=== PATIENT | female | born 1965 | race Caucasian/White ===

== ENCOUNTER → 2021-07-25 | Outpatient (CLI) | payer OTHER ==
[~2021-07-25] MED LIST: ADVAIR HFA 115-12 G1 INH; ALBUTEROL0.63 MG/3 INH; ATORVASTATIN CA10 MG PO; DIVALPROEX SOD500 M1 PO; FUROSEMIDE 20 M20 M1 PO; GABAPENTIN600 M1 PO; GEMTESA75 MG PO; INCRUSE ELLI62.5 MCG INH; LEXAPRO 10 MG T10 M2 PO; MECLIZINE HCL25 MG PO; METFORMIN HCL1000 MG PO; NITROGLYCERIN0.4 MG SUBLING; NORCO5 PO; NORVASC5 MG PO; POTASSIUM CHLO10 ME1 PO; PRINIVIL40 MG PO; PROPRANOLOL 20M20 M1 PO; TRAZODONE HCL100 MG PO
--- NOTE | 2021-07-27 15:12 | O ---
[facility] [place] [address] OPERATIVE REPORT Name: KIMTAMMY Room #: EDGAR JAKE Prince#: [id number] Admission: 07/25/21 Attend Phys: Rica Centeno DO Discharge: Date of : 63 Report #: [id number] THIS REPORT FOR: cc: Laura Allison,Laura Purvis,Laura Garvey DO ~ DATE OF SERVICE: 07/27/2021 PREOPERATIVE DIAGNOSES: 1. History of right breast cancer. 2. BRCA positive gene mutation. POSTOPERATIVE DIAGNOSES: 1. History of right breast cancer. 2. BRCA positive gene mutation. PROCEDURE: Prophylactic left simple mastectomy. SURGEON: Laura Allison DO ANESTHESIA: General endotracheal. SPECIMENS: Left breast (stitch funez axillary tail). DRAINS: A 19-Croatian JAMEL drain placed to bulb suction and brought out through the left inframammary fold. ESTIMATED BLOOD LOSS: 50 mL. COMPLICATIONS: None. INDICATIONS FOR PROCEDURE: The patient is a 56-year-old female who was referred to my office for evaluation of prophylactic left simple mastectomy. The patient has a history of right breast cancer and has been found to have the BRCA gene mutation. Due to the patient's increased comorbidities and increased risk of recurrent breast cancer in the contralateral breast, discussed with the patient recommendation for prophylactic left simple mastectomy. The patient was explained the procedure including risks, benefits and alternatives. All questions were answered to the patient's satisfaction. Informed consent was obtained. DESCRIPTION OF PROCEDURE: After the patient was brought back to the operating room and placed in supine position, general anesthesia was induced. SCDs were placed on bilateral lower extremities and 3 grams of Ancef were prophylactically administered. General anesthesia was induced and the patient was intubated. The patient's previous mastectomy incision scar was marked with a marking pen as [address] [address] OPERATIVE REPORT Name: TAMMY KIM Room #: REG JAKE Prince#: [id number] Admission: 07/25/21 Attend Phys: Rica Centeno DO Discharge: Date of : 63 Report #: [id number] well as the patient's previous scar from her left Bdus-G-Btqxcopx. The patient was noted to have keyhole scars on her left breast in the inframammary fold as well as just inferior to the nipple and around the areolar complex. At this time, the left chest was prepped and draped in the usual sterile fashion. After a timeout was performed, an elliptical incision was created with a #10 blade around the patient's nipple areolar complex. Dissection was carried down through the subcutaneous tissues using Bovie cautery. Next, the superior skin flap was retracted with skin hooks and with manual retraction of the breast tissue, the breast was removed using Bovie cautery from the superior skin flap. Dissection was carried medially to the lateral border of the sternum, superiorly to the level of the clavicle. Two Prolene sutures were identified near the site of the patient's previous Wwqq-Z-Siscgygo site. There was also noted to be scarring in this location as well. Once this area was clean and hemostatic, dissection then was initiated in a similar fashion along the inferior flap. Similar dissection was performed to the level of the inferior mammary fold. The breast tissue was then dissected inferiorly to the level of the abdominal wall as well as laterally to the lateral pectoralis muscle. The patient was noted to have a large lateral axillary fat pad as well as subcutaneous fat pad. At this time, the breast tissue was then removed from the pectoralis muscle, leaving the fascia in place. This was performed in a medial to lateral fashion, achieving hemostasis along the way. Once lateral, I ensured that the axillary tail was removed as well. This was done to the lateral margin of the pectoralis muscle and I was able to identify the axillary fat pad, which was left intact. Once the breast was removed in its entirety near the latissimus dorsi, the breast was then marked with a single stitch of 2-0 nylon suture marking the axillary tail. There was secondary matthias of tissue, which was more subcutaneous fat along the inferior margin that was anatomically placed back into position and secured with a 3-0 Vicryl stitch to the specimen. This was then passed off the field and sent to pathology for permanent. Next, the skin level was palpated, there was noted to be nice smooth skin along the medial and superior margin of the skin flap, the inferior flap did have an abrupt cut off and shelving edge along the abdominal fat planes. Therefore, I did remove additional subcutaneous fat to allow for more gentle taper of the mastectomy site. Once this was completed, I also removed additional lateral subcutaneous fat from the midaxillary line. At this time, the area was then copiously irrigated. The surgical field was noted to have excellent hemostasis. The skin was then reapproximated in a layered fashion with 3-0 Vicryl and the skin was closed with 4-0 Monocryl. Prior to skin closure, a 19-Croatian fully fluted JAMEL drain was placed in the skin fold and brought out through the left lateral inframammary fold region and secured to the skin using a 2-0 nylon stitch. Next, the skin was then cleaned. Dermabond was applied for sterile dressing. A drain stitch was then placed around the drain site, 4 x 4 fluffs and ABD dressing was then applied and a surgical bra was placed on the patient prior to waking from anesthesia, extubating and taking to the recovery room in stable condition. The patient tolerated the procedure well without any complications. She will be monitored for 23-hour observation to [address] [address] OPERATIVE REPORT Name: TAMMY KIM Room #: REG JAKE Prince#: [id number] Admission: 07/25/21 Attend Phys: Rica Centeno DO Discharge: Date of : 63 Report #: [id number] ensure normal output from her JAMEL drain as well as monitor her COPD and sleep apnea. <ELECTRONICALLY SIGNED> By: Laura Allison DO 07/27/21 1512 [id number] Laura Allison DO /nt
== END ==
LOC: LAB 09:29
PROVIDERS: ATTEND Student in an Organized Health Care Education/Training Program
DX: Z01.812 Encounter for preprocedural laboratory examination (principal); Z20.822 Contact with and (suspected) exposure to COVID-19

== ENCOUNTER 2021-07-27 06:05 | Observation (INO) | payer OTHER ==
[~2021-07-27] VITALS: Ht 177.8 cm; Wt 151.2 kg
--- NOTE | ~2021-07-27 | O ---
[facility] [place] [address] OPERATIVE REPORT Name: TAMMY KIM Room #: 433-I [facility] Mylene Prince#: [id number] Admission: 07/27/21 Attend Phys: Laura Allison DO Discharge: 07/28/21 Date of : 63 Report #: [id number] THIS REPORT FOR: cc: Laura Allison,Laura Purvis,Laura Garvey DO ~ DATE OF SERVICE: 07/27/2021 PREOPERATIVE DIAGNOSES: 1. History of right breast cancer. 2. BRCA positive gene mutation. POSTOPERATIVE DIAGNOSES: 1. History of right breast cancer. 2. BRCA positive gene mutation. PROCEDURE: Prophylactic left simple mastectomy. SURGEON: Laura Allison DO ANESTHESIA: General endotracheal. SPECIMENS: Left breast (stitch funez axillary tail). DRAINS: A 19-Faroese JAMEL drain placed to bulb suction and brought out through the left inframammary fold. ESTIMATED BLOOD LOSS: 50 mL. COMPLICATIONS: None. INDICATIONS FOR PROCEDURE: The patient is a 56-year-old female who was referred to my office for evaluation of prophylactic left simple mastectomy. The patient has a history of right breast cancer and has been found to have the BRCA gene mutation. Due to the patient's increased comorbidities and increased risk of recurrent breast cancer in the contralateral breast, discussed with the patient recommendation for prophylactic left simple mastectomy. The patient was explained the procedure including risks, benefits and alternatives. All questions were answered to the patient's satisfaction. Informed consent was obtained. DESCRIPTION OF PROCEDURE: After the patient was brought back to the operating room and placed in supine position, general anesthesia was induced. SCDs were placed on bilateral lower extremities and 3 grams of Ancef were prophylactically administered. General anesthesia was induced and the patient was intubated. The patient's previous mastectomy incision scar was marked with a marking pen as [address] [address] OPERATIVE REPORT Name: TAMMY KIM Room #: 433-I DIS Mylene Prince#: [id number] Admission: 07/27/21 Attend Phys: Laura Allison DO Discharge: 07/28/21 Date of : 63 Report #: [id number] well as the patient's previous scar from her left Rtyr-I-Plwdwypm. The patient was noted to have keyhole scars on her left breast in the inframammary fold as well as just inferior to the nipple and around the areolar complex. At this time, the left chest was prepped and draped in the usual sterile fashion. After a timeout was performed, an elliptical incision was created with a #10 blade around the patient's nipple areolar complex. Dissection was carried down through the subcutaneous tissues using Bovie cautery. Next, the superior skin flap was retracted with skin hooks and with manual retraction of the breast tissue, the breast was removed using Bovie cautery from the superior skin flap. Dissection was carried medially to the lateral border of the sternum, superiorly to the level of the clavicle. Two Prolene sutures were identified near the site of the patient's previous Hwqh-X-Gowivzwx site. There was also noted to be scarring in this location as well. Once this area was clean and hemostatic, dissection then was initiated in a similar fashion along the inferior flap. Similar dissection was performed to the level of the inferior mammary fold. The breast tissue was then dissected inferiorly to the level of the abdominal wall as well as laterally to the lateral pectoralis muscle. The patient was noted to have a large lateral axillary fat pad as well as subcutaneous fat pad. At this time, the breast tissue was then removed from the pectoralis muscle, leaving the fascia in place. This was performed in a medial to lateral fashion, achieving hemostasis along the way. Once lateral, I ensured that the axillary tail was removed as well. This was done to the lateral margin of the pectoralis muscle and I was able to identify the axillary fat pad, which was left intact. Once the breast was removed in its entirety near the latissimus dorsi, the breast was then marked with a single stitch of 2-0 nylon suture marking the axillary tail. There was secondary matthias of tissue, which was more subcutaneous fat along the inferior margin that was anatomically placed back into position and secured with a 3-0 Vicryl stitch to the specimen. This was then passed off the field and sent to pathology for permanent. Next, the skin level was palpated, there was noted to be nice smooth skin along the medial and superior margin of the skin flap, the inferior flap did have an abrupt cut off and shelving edge along the abdominal fat planes. Therefore, I did remove additional subcutaneous fat to allow for more gentle taper of the mastectomy site. Once this was completed, I also removed additional lateral subcutaneous fat from the midaxillary line. At this time, the area was then copiously irrigated. The surgical field was noted to have excellent hemostasis. The skin was then reapproximated in a layered fashion with 3-0 Vicryl and the skin was closed with 4-0 Monocryl. Prior to skin closure, a 19-Faroese fully fluted JAMEL drain was placed in the skin fold and brought out through the left lateral inframammary fold region and secured to the skin using a 2-0 nylon stitch. Next, the skin was then cleaned. Dermabond was applied for sterile dressing. A drain stitch was then placed around the drain site, 4 x 4 fluffs and ABD dressing was then applied and a surgical bra was placed on the patient prior to waking from anesthesia, extubating and taking to the recovery room in stable condition. The patient tolerated the procedure well without any complications. She will be monitored for 23-hour observation to [address] [address] OPERATIVE REPORT Name: TAMMY KIM Room #: 433-I DIS Mylene Prince#: [id number] Admission: 07/27/21 Attend Phys: Laura Allison DO Discharge: 07/28/21 Date of : 63 Report #: [id number] ensure normal output from her JAMEL drain as well as monitor her COPD and sleep apnea. By: 0944 [id number] Laura Allison DO /nt
--- NOTE | ~2021-07-27 | O ---
[facility] [place] [address] OPERATIVE REPORT Name: TAMMY KIM Room #: 433-I [facility] Mylene Prince#: [id number] Admission: 07/27/21 Attend Phys: Laura Allison DO Discharge: 07/28/21 Date of : 63 Report #: [id number] THIS REPORT FOR: cc: Laura Allison,Laura Purvis,Laura Garvey DO ~ DATE OF SERVICE: 07/27/2021 PREOPERATIVE DIAGNOSES: 1. History of right breast cancer. 2. BRCA positive gene mutation. POSTOPERATIVE DIAGNOSES: 1. History of right breast cancer. 2. BRCA positive gene mutation. PROCEDURE: Prophylactic left simple mastectomy. SURGEON: Laura Allison DO ANESTHESIA: General endotracheal. SPECIMENS: Left breast (stitch funez axillary tail). DRAINS: A 19-[place] Citizen JAMEL drain placed to bulb suction and brought out through the left inframammary fold. ESTIMATED BLOOD LOSS: 50 mL. COMPLICATIONS: None. INDICATIONS FOR PROCEDURE: The patient is a 56-year-old female who was referred to my office for evaluation of prophylactic left simple mastectomy. The patient has a history of right breast cancer and has been found to have the BRCA gene mutation. Due to the patient's increased comorbidities and increased risk of recurrent breast cancer in the contralateral breast, discussed with the patient recommendation for prophylactic left simple mastectomy. The patient was explained the procedure including risks, benefits and alternatives. All questions were answered to the patient's satisfaction. Informed consent was obtained. DESCRIPTION OF PROCEDURE: After the patient was brought back to the operating room and placed in supine position, general anesthesia was induced. SCDs were placed on bilateral lower extremities and 3 grams of Ancef were prophylactically administered. General anesthesia was induced and the patient was intubated. The patient's previous mastectomy incision scar was marked with a marking pen as [address] [address] OPERATIVE REPORT Name: TAMMY KIM Room #: 433-I DIS Mylene Prince#: [id number] Admission: 07/27/21 Attend Phys: Laura Allison DO Discharge: 07/28/21 Date of : 63 Report #: [id number] well as the patient's previous scar from her left Eknf-Y-Wkiizdve. The patient was noted to have keyhole scars on her left breast in the inframammary fold as well as just inferior to the nipple and around the areolar complex. At this time, the left chest was prepped and draped in the usual sterile fashion. After a timeout was performed, an elliptical incision was created with a #10 blade around the patient's nipple areolar complex. Dissection was carried down through the subcutaneous tissues using Bovie cautery. Next, the superior skin flap was retracted with skin hooks and with manual retraction of the breast tissue, the breast was removed using Bovie cautery from the superior skin flap. Dissection was carried medially to the lateral border of the sternum, superiorly to the level of the clavicle. Two Prolene sutures were identified near the site of the patient's previous Xyth-X-Xpgplnji site. There was also noted to be scarring in this location as well. Once this area was clean and hemostatic, dissection then was initiated in a similar fashion along the inferior flap. Similar dissection was performed to the level of the inferior mammary fold. The breast tissue was then dissected inferiorly to the level of the abdominal wall as well as laterally to the lateral pectoralis muscle. The patient was noted to have a large lateral axillary fat pad as well as subcutaneous fat pad. At this time, the breast tissue was then removed from the pectoralis muscle, leaving the fascia in place. This was performed in a medial to lateral fashion, achieving hemostasis along the way. Once lateral, I ensured that the axillary tail was removed as well. This was done to the lateral margin of the pectoralis muscle and I was able to identify the axillary fat pad, which was left intact. Once the breast was removed in its entirety near the latissimus dorsi, the breast was then marked with a single stitch of 2-0 nylon suture marking the axillary tail. There was secondary matthias of tissue, which was more subcutaneous fat along the inferior margin that was anatomically placed back into position and secured with a 3-0 Vicryl stitch to the specimen. This was then passed off the field and sent to pathology for permanent. Next, the skin level was palpated, there was noted to be nice smooth skin along the medial and superior margin of the skin flap, the inferior flap did have an abrupt cut off and shelving edge along the abdominal fat planes. Therefore, I did remove additional subcutaneous fat to allow for more gentle taper of the mastectomy site. Once this was completed, I also removed additional lateral subcutaneous fat from the midaxillary line. At this time, the area was then copiously irrigated. The surgical field was noted to have excellent hemostasis. The skin was then reapproximated in a layered fashion with 3-0 Vicryl and the skin was closed with 4-0 Monocryl. Prior to skin closure, a 19-[place] Citizen fully fluted JAMEL drain was placed in the skin fold and brought out through the left lateral inframammary fold region and secured to the skin using a 2-0 nylon stitch. Next, the skin was then cleaned. Dermabond was applied for sterile dressing. A drain stitch was then placed around the drain site, 4 x 4 fluffs and ABD dressing was then applied and a surgical bra was placed on the patient prior to waking from anesthesia, extubating and taking to the recovery room in stable condition. The patient tolerated the procedure well without any complications. She will be monitored for 23-hour observation to [address] [address] OPERATIVE REPORT Name: TAMMY KIM Room #: 433-I DIS Mylene Prince#: [id number] Admission: 07/27/21 Attend Phys: Laura Allison DO Discharge: 07/28/21 Date of : 63 Report #: [id number] ensure normal output from her JAMEL drain as well as monitor her COPD and sleep apnea. By: 0944 1052 Laura Allison DO /nt
[~2021-07-27 06:05] MED LIST changes: -NORCO5 PO
[2021-07-27 07:07] VITALS: BP 116/68
[2021-07-27] MEDS ORDERED: NORCO5 PO (11:16)
--- NOTE | 2021-07-27 15:27 | NUR ---
ASSUMED CARE OF PT AT 1400 THIS AFTERNOON FROM PACU. PT HAS BEEN WAITING IN PACU SINCE 1030. PT IS A/OX4 WITH DRESSING C/D/I ON LT CHEST AFTER MASTECTOMY. SYSTEMS ASSESSMENTS AND PLAN OF CARE COMPLETED BY RN, THAO. PT IS UP INDEP AND NO NEED FOR FALL PRECAUTIONS. PT IS IN FOR OBSERVATION AND MOST LIKELY DISCHARGING TOMORROW MORNING. MEDS AND TX GIVEN NEEDED AND SCHEDULED. WILL MONITOR AND NOTE ANY CHANGES.
[2021-07-27 15:55] VITALS: BP 145/76
[2021-07-27 19:21] VITALS: BP 155/89
--- NOTE | 2021-07-28 05:29 | NUR ---
RECEIVED CARE OF THIS PATIENT AT 1900. PATIENT ALERT AND ORIENTED X4. UP AD CLAUDIA. C/O PAIN BUT REFUSES MED. HAS JAMEL DRAIN. O2 AT 3L/NC. SLEPT MOST OF NIGHT.
[2021-07-28 08:45] VITALS: BP 117/57
[2021-07-28 10:53] VITALS: BP 117/57
[2021-07-28 12:03] VITALS: BP 117/57
--- NOTE | 2021-07-28 13:58 | NUR ---
ORDERS RECEIVED. CHART REVIEWED. INSTRUCTED IN HOME EXERCISE PROGRAM TO START AFTER DRAINS ARE REMOVED. REVIEWED PRECAUTIONS FOR POST OP AND LYMPHEDEMA. PT REMEMBERS HER PRECAUTIONS FROM PRIOR SURGERY. Pt TO CALL OUT PT REHAB IF SHE HAS ANY FURTHER QUESTIONS. THANK YOU FOR THE REFERRAL
--- NOTE | 2021-07-28 14:47 | NUR ---
ASSUMED CARE OF PT AT 0700. PT WAS RESTING IN BED. NO COMPLAINTS OTHER THAN PAIN. STATED HER NECK WAS HURTING. GIVEN HYDROCODONE. GAVE PT DISCHARGE PAPERWORK, HELPED AMBULATE TO BATHROOM. ALL VITAL SIGNS WNL
--- NOTE | 2021-08-09 10:07 | PATH ---
[facility] [place] [address] PATHOLOGY RPT PROCEDURE Name: TRACY KIM Room #: 433-I [facility] Mylene M.R.#: [id number] Admission: 07/27/21 Date of : 63 Discharge: 07/28/21 Report #: [id number] Path Case #: [id number] [facility] Accession Number: [id number] . 01 Material submitted: . breast - LEFT BREAST STITCH AT AXILLARY TAIL. Modifiers: left, axillary tail . 01 Clinical history: . DS 07/27 SIMPLE MASTECTOMY UNILATERAL HISTORY OF CANCER RIGHT BREAST MASTECTOMY, MODIFIED RADICAL UNILAT... COLLECTED: FORMALIN: 0939 . 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 - Fibrocystic changes with usual ductal hyperplasia with and without atypia. . (LAMIN/db/mml; 07/28/2021) . . . CASE SUMMARY: (DCIS OF THE BREAST: Resection) Standard(s): AJCC-UICC 8 . SPECIMEN . Procedure ___ Total mastectomy (including nipple-sparing and skin-sparing mastectomy) . Specimen Laterality ___ Left . TUMOR . +Tumor Site ___ Upper inner quadrant . Histologic Type ___ Ductal carcinoma in situ . Size (Extent) of DCIS [facility] [address] [place] [address] PATHOLOGY RPT PROCEDURE Name: TRACY KIM Room #: 433-I [facility] Mylene Rosa.#: [id number] Admission: 07/27/21 Date of : 63 Discharge: 07/28/21 Report #: [id number] Path Case #: [id number] ___ Estimated size (extent) of DCIS is at least in Millimeters: About 5 mm . +Additional Dimension in Millimeters (mm): About 3 x 4 mm +Number of Blocks with DCIS: 1 +Number of Blocks Examined: 28 . +Architectural Patterns ___ Cribriform . Nuclear Grade ___ Grade II (intermediate) . Necrosis ___ Not identified . MARGINS Margin Status: Uninvolved by DCIS +Distance from the closest margin: Not close to any margins . REGIONAL LYMPH NODES . Regional Lymph Node Status ___ No lymph nodes submitted or found . PATHOLOGIC STAGE CLASSIFICATION (pTNM, AJCC 8th Edition) . pT Category ___ pTis (DCIS): Ductal carcinoma in situ . Regional Lymph Nodes . pN Category ___ pN cannot be assessed as not removed . DISTANT METASTASIS: Not applicable . MICROCALCIFICATIONS: present . ADDITIONAL FINDINGS +Additional Pathological Findings: Focus of atypical ductal hyperplasia measuring 1 to 2 mm . ANCILLARY STUDIES FOR LEFT BREAST: Pending on block A13 ER and CO . . . CLINICAL HISTORY: [facility] [address] [place] [address] PATHOLOGY RPT PROCEDURE Name: TRACY KIM Room #: 433-I [facility] Mylene Prince#: [id number] Admission: 07/27/21 Date of : 63 Discharge: 07/28/21 Report #: [id number] Path Case #: [id number] . PRIOR HISTORY OF BREAST CANCER: On the right side . (LAMIN:wilver; 07/29/2021) LBQ 07/29/2021 1414 Local . 01 Comment: Immunoperoxidase stains p63 and smooth muscle myosin on block A11 are positive. Immunoperoxidase stain CK5/6 on block A13 is negative consistent with ductal carcinoma in situ. Immunoperoxidase stain CK5/6 on blocks A15 is positive and in block A16 is focally negative consistent with atypical ductal hyperplasia. . This case is also reviewed by Dr. Jayna Kelly on 07/29/2021. She agreed with the above diagnosis. This case was also discussed with Dr.Chelsea Allison on 07/29/2021 at 1:00 pm. (LAMIN/chas/mmclaudette; 07/28/2021) . 01 Addendum: . Special studies report received from [facility], [address] [place] [address], [address], [place], [address], on case [id number], labeled with their number [id number], dated 08/05/2021. . Breast Predictive/Prognostic Marker Analysis . . Specimen Site: Left Breast, Mastectomy, Breast Cancer Specimen ID #: [id number] . ER (Estrogen Receptor) Positive Percent: 95.00% Analysis: Manual Staining Intensity: Moderate to Strong Internal Control: Present and Positive . CO (Progesterone Receptor) Positive Percent: 95.00% Analysis: Manual Staining Intensity: Moderate to Strong Internal Control: Present and Positive . Time to Fixation (Cold Ischemic Time): 10 Minutes Duration of Fixation: 11 Hours Type of Fixative: 10% Neutral Buffered Formalin [address] [address] PATHOLOGY RPT PROCEDURE Name: TRACY KIM Room #: 433-I [facility] Mylene Prince#: [id number] Admission: 07/27/21 Date of : 63 Discharge: 07/28/21 Report #: [id number] Path Case #: [id number] . at [email or web address], [employer]. Erica Scott D.O. Surgical Pathologist . . Methodology: A rabbit monoclonal antibody (clone SP1) that recognized the Estrogen Receptor is used to perform immunohistochemistry on routinely fixed (formalin) paraffin embedded tissue on the [place] [employer]. The specimen is processed using a secondary antibody-HRP conjugate detection system. The percentage of stained tumor nuclei is determined either manually or by image analysis. This test is intended for in vitro diagnostic use. This test is used for clinical purposes. . A rabbit monoclonal antibody (clone 1E2) that recognized the Progesterone Receptor is used to perform immunohistochemistry on routinely fixed (formalin) paraffin embedded tissue on the [place] [employer]. The specimen is processed using a secondary antibody-HRP conjugate detection system. The percentage of stained tumor nuclei is determined either manually or by image analysis. This test is intended for in vitro diagnostic use. This test is used for clinical purposes. . Intended Use: This antibody is intended for in vitro diagnostic (IVD) use. Estrogen Receptor (ER) (SP1) is a rabbit monoclonal antibody (IgG) that is intended for the qualitative detection of estrogen receptor (ER) antigen in sections of formalin-fixed, paraffin-embedded tissue. ER is a rabbit monoclonal antibody that recognizes human estrogen receptor alpha. . This antibody is intended for in vitro diagnostic (IVD) use. Progesterone Receptor (CO) (1E2) is a rabbit monoclonal antibody (IgG) that is intended for the qualitative detection of progesterone receptor (CO) antigen in sections of formalin fixed, paraffin embedded tissue. CO is a rabbit monoclonal antibody that recognizes the A and B forms of the human progesterone receptor. . Disclaimer(s): This assay has not been validated on decalcified tissues. Results should be interpreted with caution if this specimen was decalcified given the likelihood of false negativity on decalcified specimens. . Any image(s) that accompany this report is/are a packaging sales representative image(s) only and should not be used to render a diagnosis. . This interpretation is contingent on the specimen and the clinical information received. [facility] [address] [place] [address] PATHOLOGY RPT PROCEDURE Name: TRACY KIM Room #: 433-I [facility] Prince#: [id number] Admission: 07/27/21 Date of : 63 Discharge: 07/28/21 Report #: [id number] Path Case #: [id number] . For any special tests/stains performed, known positive cells or tissues are tested with each marker and examined to ensure positivity. Positive and negative internal controls, if present, react appropriately. . This analysis is an adjunct to the evaluation of the referring physician and does not represent a final diagnosis. . The immunohistochemistry tests performed at [facility]. were validated on tissue fixed in 10% neutral buffered formalin. The performance characteristics of the tests performed on tissue processed in other fixatives is not known. . ER/CO ASCO/CAP guidelines require fixation in neutral buffered formalin for a minimum of 6 and a maximum of 72 hours. Fixation times less than 6 hours may not adequately preserve cell proteins. Fixation times longer than 72 hours may cause excess cross-linking of proteins reducing the antigen available for staining. Either scenario can cause reduced staining; hence false negative results are possible and should be considered for these situations. The time from biopsy/excision to fixation in formalin (cold ischemic time) must be less than 1 hour. Time to fixation (cold ischemic time) greater than 1 hour should be interpreted with caution. REF: Enrrique Thao, et al. [place] Society of Clinical Oncology/College of [place] Pathologists Guideline Recommendations for Immunohistochemical Testing of Estrogen and Progesterone Receptors in Breast Cancer. J Clin Oncol. 2009December 07; 28(16): 8229-8145. . ER/PgR testing at [facility]. is performed in compliance with the ASCO/CAP Clinical Practice Guidelines. If the result for ER is less than 1% it is reported as Negative; if the ER result is 1-10% it is reported as Low Positive; if the ER result is greater than 10% it is reported as Positive. If the result for PgR is less than 1% it is reported as Negative; if the PgR result is equal to or greater than 1%, it is reported as Positive. . REFERENCE: Leatha KH, Master WESTON, Kunal M,et al. Estrogen and progesterone receptor testing in breast cancer. ASCO/CAP guideline update. Arch Pathol Lab Med. 2020;144:545-563. . Performing Labs: This Test was performed at [facility]. at [address] [address], [place], [address]. . [facility] is a business unit of [facility]. a wholly-owned subsidiary of [employer]. . A complete copy of the report is on file. [place] [id number] PATHOLOGY RPT PROCEDURE Name: TRACY KIM Room #: 433-I [facility] Mylene M.R.#: [id number] Admission: 07/27/21 Date of : 63 Discharge: 07/28/21 Report #: [id number] Path Case #: [id number] . Professional and Technical services performed by [employer]. at [facility], [place] [address]. . (SHA:devan 08/05/2021) KORTNEY/08/05/2021 Addendum Electronically Signed by Jason Nielsen MD. Pathologist . 01 Electronically signed: . Jason Nielsen MD, Pathologist NPI- [id number] . 01 Gross description: . The specimen is received in formalin, labeled "Tracy Kim, Left breast-stitch at axillary tail" and the specimen consists of a 901 g mastectomy (18.5 x 15.0 x 6.0 cm) that is partially surfaced with a gallego skin ellipse (14.3 x 6.1 cm) that displays an areola (5.5 cm in diameter) with a central everted nipple (1.4 cm in diameter). The areolar rim displays a white-gallego, circumferential discoloration (5.7 x 0.5 cm). The specimen has been previously oriented with a stitch designating the axillary tail. The markedly shaggy surgical margins are inked as follows: superficial superior margin-blue, superficial inferior margin-green ink, and the deep margin is inked black. The deep margin is markedly disrupted and as a result the inked surfaces may be distorted. Sectioning reveals, within the upper outer quadrant, at approximately the 11 o'clock position, a yellow-gallego slightly radiating rubbery and focally gritty mass (mass #1, 0.4 x 0.4 x 0.3 cm) that comes to within 3.6 cm from the superficial superior margin, 8.0 cm from the superficial inferior margin and approximately 5.5 cm from the deep margin. Located approximately 8.0 cm from mass #1, within the lower inner quadrant, at approximately 4:00-5:00 position, is a second pink, firm mass (mass #2, 0.4 x 0.3 x 0.3 cm) that comes to within 1.2 cm from the nearest superficial inferior margin, approximately 2.7 cm from the deep margin, and 6.7 cm from the nearest superficial superior margin. No biopsy cavity or clip is identified. The remaining cut surfaces display at most 5% fibrocystic tissue. Family Medicine Physician Assistant sections are submitted as follows: A1: Perpendicularly sectioned nipple, submitted on edge, entirely submitted A2: Tissue underlying nipple, submitted en face, entirely submitted and areolar circumferential discoloration, represented A3: Superficial superior margin nearest mass #1, represented A4: Superficial inferior margin nearest mass #1, represented A5: Deep margin nearest mass #1, represented A6-A7: Mass 1, entirely submitted A8: Deep margin nearest mass #2, represented A9: Superficial superior margin nearest mass #2, represented A10-A12: Mass #2, entirely submitted and to show proximity to superficial inferior margin represented in A10-A11 [facility] [address] [place] [address] PATHOLOGY RPT PROCEDURE Name: TRACY KIM Room #: 433-I [facility] M.R.#: [id number] Admission: 07/27/21 Date of : 63 Discharge: 07/28/21 Report #: [id number] Path Case #: [id number] A13: Upper inner quadrant, represented A 14: Lower inner quadrant, represented A15: Lower outer quadrant, represented A16: Upper outer quadrant, represented The cold ischemic time 10 minutes. The total time in formalin is 11 hours. Photographs are taken. ([place]; 07/27/2021) . The approximate distance of the smaller section of fat in A13 to the nearest margins is as follows: 1.7 cm from superficial superior 1.5 cm from superficial inferior 3.1 cm from deep margin . A17-A19: Additional sections from upper inner quadrant, represented A20-A21: Additional sections from upper outer quadrant, represented A22-A24: Additional sections from lower outer quadrant, represented A25-A28: Additional sections surrounding mass #2, represented The total time in formalin for the tissue in A17-A28 is 33 hours. ([place]; 07/28/2021) DKA/DKA 07/28/2021 1426 Local . 01 Pathologist provided ICD-10: D05.12, N62 . 01 CPT . 812354, [id number], [id number] Performed at: 01 [facility] [place] [address], [place], [place] [id number] MD Jason Nielsen MD Phone: [phone]
== END 2021-07-28 14:49 | disposition home or self-care (01) ==
LOC: 4S 06:05 → OR 06:05 → 4S 14:11 → OR 14:12 → 4S 14:12 → OR 14:52 → 4S 07-28 14:49
PROVIDERS: ADMIT Surgery; ATTEND Surgery
DX: C50.911 Malignant neoplasm of unspecified site of right female breast (principal); C50.912 Malignant neoplasm of unspecified site of left female breast; Z79.899 Other long term (current) drug therapy
CPT/HCPCS: 10102; 50010; 50101; 50331; 50386; 50403; 51412; 54118; 56524; 56525; 56526; 62110; 62900; 70005